=== PATIENT | male | born 1990 | race Two or more races ===

== ENCOUNTER 2020-08-25 23:10 | Emergency (ER) | payer MEDICAID ==
[~2020-08-25] VITALS: Ht 170.2 cm; Wt 156.0 kg
--- NOTE | 2020-08-25 23:35 | NUR ---
PT RESTING COMFORTABLY IN [facility] WITH NADN. DR GARSIA AT FOR PT HISTORY AND ASSESSMENT. CALL LIGHT IS WITHIN REACH OF PT AT THIS TIME. PT VSS AT THIS TIME. IN LOBBY AND UPDATED ON PT DISPOSITION AT THIS TIME.
[2020-08-25] MEDS ORDERED: ACETAMINOPHEN 325 MG TABLET ONE (23:53)
[2020-08-25] MEDS ORDERED: ONDANSETRON ODT 4 MG ONE (23:54)
[2020-08-26] MEDS ORDERED: ONDANSETRON ODT 4 MG PO ONE
[2020-08-26] MEDS ORDERED: ACETAMINOPHEN 325 MG TABLET PO ONE
[2020-08-26 00:17] LABS: BASOPHILS # (AUTO) 0.22 x10^3/uL (0-0.1); BASOPHILS % (AUTO) 3 % (0-1); EOSINOPHILS # (AUTO) 0.07 x10^3/uL (0-0.4); EOSINOPHILS % (AUTO) 1 % (1-7); LYMPHOCYTES # (AUTO) 1.84 x10^3/uL (1-3.4); LYMPHOCYTES % (AUTO) 22 % (22-44); MD NO; MEAN CORPUSCULAR HEMOGLOBIN 27.6 pg (27.5-34.5); MEAN CORPUSCULAR HGB CONC 33.1 g/dL (33.2-36.2); MEAN PLATELET VOLUME 8.9 fL (7.4-10.4); MONOCYTES # (AUTO) 0.61 x10^3/uL (0.2-0.8); MONOCYTES % (AUTO) 7 % (2-9); NEUTROPHILS # (AUTO) 5.71 x10^3/uL (1.8-6.8); NEUTROPHILS % (AUTO) 68 % (42-75); PLATELET COUNT 210 x10^3/uL (130-400); RED BLOOD COUNT 5.67 x10^6/uL (4.38-5.82); RED CELL DISTRIBUTION WIDTH 14.9 % (9.4-14.8)
[2020-08-26 00:27] VITALS: BP 139/88
[2020-08-26 00:28] LABS: ALANINE AMINOTRANSFERASE 26 U/L (12-78); ALBUMIN 3.5 g/dL (3.4-5.0); ANION GAP 7 mmol/L (5-15); CALCIUM 8.7 mg/dL (8.5-10.1); CHLORIDE 103 mmol/L (98-107)
[2020-08-26 00:30] LABS: ALKALINE PHOSPHATASE 73 U/L (45-117); BILIRUBIN,TOTAL 0.4 mg/dL (0.2-1.0); TOTAL PROTEIN 8.3 g/dL (6.4-8.2)
--- NOTE | 2020-08-26 02:32 | NUR ---
PT D/C WITH D/C SUMMARY AND SCRIPTS. ALL QUESTIONS ANSWERED. PT PROVIDED A WORK NOTE AND EDUCATED ON NEED TO STAY HOME X 1 WEEK OR UNTIL SYMPTOMS RESOLVE. PT VERBALIZES UNDERSTANDING. PT DENIES ANY OTHER NEEDS AT THIS TIME AND AMBULATES TO REGISTRATION DESK WITH STEADY GAIT FOR D/C HOME.
== END 2020-08-26 02:34 | disposition home or self-care (01) ==
LOC: ED 08-26 02:05
DX: J15.9 Unspecified bacterial pneumonia (principal); J12.9 Viral pneumonia, unspecified; M79.10 Myalgia, unspecified site; R50.9 Fever, unspecified; R06.02 Shortness of breath; R05 Cough
CPT/HCPCS: 36415; 71045; 80053; 85025; 93005; 99285